=== PATIENT | female | born 1995 | race Two or more races ===

== ENCOUNTER 2016-04-20 06:56 | Emergency (ER) | payer OTHER ==
[2016-04-20 07:11] VITALS: BP 105/75; PULSE 93; TEMP 99.1; BMI 24.3
[2016-04-20] MEDS ORDERED: diphenhydrAMINE HCL 25 MG CAPSULE (FP) PO ONE ×2 (07:49→08:10)
[2016-04-20] MEDS ORDERED: ACETAMINOPHEN 325 MG TABLET (FP) PO ONE (07:49)
--- NOTE | 2016-04-20 07:49 | PDOC ---
History of Present Illness - General History Source: Patient Exam Limitations: No Limitations - History of Present Illness Initial Comments: CHIEF COMPLAINT: 20 y/o afebrile female, approximately 11 weeks , c/o nasal congestion and dry cough for the past 1 week. HISTORY OF PRESENT ILLNESS: The patient states last night and today she's had a headache from all of the coughing. She has not taken any medication for her symptoms. She denies f/c, n/v/d, changes in vision/hearing, runny nose, body aches, CP, SOB, abd pain, back pain, hematuria, dysuria, vaginal bleeding. She is taking daily vitamins and is a non smoker. Vital signs on arrival are within normal limits. REVIEW OF SYSTEMS: GENERAL/CONSTITUTIONAL: No fever/chills. No weakness. No weight change. HEAD, EYES, EARS, NOSE AND THROAT: No change in vision. No ear pain or discharge. No sore throat. +nasal congestion CARDIOVASCULAR: No chest pain or shortness of breath. RESPIRATORY: +dry cough. No wheezing, or hemoptysis. GASTROINTESTINAL: No abd pain, nausea, vomiting, diarrhea. GENITOURINARY: No dysuria, frequency, or change in urination. MUSCULOSKELETAL: No joint or muscle swelling or pain. No neck or back pain. SKIN: No rash or easy bruising. NEUROLOGIC: No headache, vertigo, loss of consciousness, or loss of sensation. PSYCHIATRIC: No depression or anxiety. ENDOCRINE: No increased thirst. No abnormal weight change. HEMATOLOGIC/LYMPHATIC: No anemia, easy bleeding, or history of blood clots. ALLERGIC/IMMUNOLOGIC: No hives or skin allergy. No latex allergy. PHYSICAL EXAM: GENERAL: The patient is awake, alert, and fully oriented, in no acute distress. She is well appearing, ambulatory, in NAD or obvious discomfort. She has an intermittent dry cough. HEAD: Normal with no signs of trauma. No pain with palpation of sinuses. ENT: Pupils equal, round and reactive to light, extraocular movements intact, sclera anicteric, conjunctiva clear. Neck supple. No tonsilar erythema, edema or exudate. No cervical lymphadenopathy. Nose is red but clear of rhinorrhea. LUNGS: Clear to auscultation bilaterally. Normal excursion. No respiratory distress or use of accessory muscles. CV: RRR, S1/S2, no MRG. Cap refill < 2 sec. ABDOMEN: Soft, non-distended, non-tender even to deep palpation, no hepatomegaly or splenomegaly, no masses. EXTREMITIES: Normal range of motion, no edema. NEUROLOGICAL: Normal speech, normal gait. CN II-XII grossly intact. PSYCH: Normal mood, normal affect. SKIN: Warm, dry, normal turgor, no rashes or lesions noted. <Amish Russoee - Last Filed: 04/20/16 07:42> <Onofre Morales - Last Filed: 04/21/16 09:39> - General Chief Complaint: Cold Symptoms Stated Complaint: COLD SYMPTOMS, HEADACHE Time Seen by Provider: 04/20/16 07:41 Past History - Past Medical History Other medical history: denies - Immunization History Immunization Up to Date: Yes - Psycho/Social/Smoking Cessation Hx Anxiety: No Suicidal Ideation: No Smoking History: Never smoked Have you smoked in the past 12 months: No Information on smoking cessation initiated: No Hx Alcohol Use: No Drug/Substance Use Hx: No Substance Use Type: None <Ange Russo - Last Filed: 04/20/16 07:42> <Onofre Morales - Last Filed: 04/21/16 09:39> - Past Medical History Allergies/Adverse Reactions: Allergies Allergy/AdvReac Type Severity Reaction Status Date / Time No Known Allergies Allergy Verified 04/20/16 07:08 *Physical Exam - Vital Signs Last Vital Signs Temp Pulse Resp BP Pulse Ox 99.1 F 93 H 20 105/75 100 04/20/16 07:09 04/20/16 07:09 04/20/16 07:09 04/20/16 07:09 04/20/16 07:09 <Amish Russoee - Last Filed: 04/20/16 07:42> - Vital Signs Last Vital Signs Temp Pulse Resp BP Pulse Ox 99.1 F 93 H 20 105/75 100 04/20/16 07:09 04/20/16 07:09 04/20/16 07:09 04/20/16 07:09 04/20/16 07:09 <Onofre Morales - Last Filed: 04/21/16 09:39> ED Treatment Course - Medications Given in the ED: ED Medications Discontinued Medications Generic Name Dose Route Start Last Admin Trade Name Freq PRN Reason Stop Dose Admin Acetaminophen 650 mg 04/20/16 07:49 04/20/16 08:16 Tylenol - PO 04/20/16 07:50 650 mg ONCE ONE Administration Diphenhydramine HCl 25 mg 04/20/16 07:49 04/20/16 08:16 Benadryl - PO 04/20/16 07:50 25 mg ONCE ONE Administration <Onofre Morales - Last Filed: 04/21/16 09:39> Medical Decision Making - Medical Decision Making A/P: 20 y/o 11 week female with nasal congestion, dry cough and headache. Plan is as follows: 1. PO tylenol 2. PO benadryl Will discharge to home. Suggested the patient take tylenol for headache and benadryl for nasal congestion. Instructed her to drink plenty of fluids, use steam heat for congestion and f/u with her PCP and POLYSOMNOGRAPHIC TECHNICIAN as soon as possible. Instructed her to return to the eR with any worsening or concerning symptoms. The patient verbalizes understanding of all instructions, has no further questions and is awaiting discharge. <Ange Russo - Last Filed: 04/20/16 07:42> - Medical Decision Making The patient was seen and evaluated in conjunction with KARON Russo under my direct supervision, ancillary studies were reviewed. I agree with the plan as outlined by KARON Russo . <Onofre Morales - Last Filed: 04/21/16 09:39> *DC/Admit/Observation/Transfer <Ange Russo - Last Filed: 04/20/16 07:42> <Onofre Morales - Last Filed: 04/21/16 09:39> Diagnosis at time of Disposition: Nasal congestion, Common cold - Discharge Dispostion Disposition: HOME Condition at time of disposition: Good - Referrals Referrals: Marisol Hewitt [Primary Care Provider] - Call tomorrow - Patient Instructions Printed Discharge Instructions: DI for Common Cold, DI for Nasal Congestion Additional Instructions: Discharge Instructions: -Take Tylenol for headache every 4 hours if needed -Take Benadryl for nasal congestion -Use steam heat to help with nasal congestion and cough -Follow up with your doctor and POLYSOMNOGRAPHIC TECHNICIAN as soon as possible -Drink plenty of fluids and rest -Return to the ER with any worsening or concerning symptoms - Post Discharge Activity Work/School Note: Back to Work
[2016-04-20] MEDS ORDERED: ACETAMINOPHEN 325 MG TABLET (FP) ONE (08:10)
== END 2016-04-20 08:31 | disposition home or self-care (01) ==
LOC: JER 06:56
DX: O99.89 Other specified diseases and conditions complicating pregnancy, childbirth and the puerperium (principal); J00 Acute nasopharyngitis [common cold]; Z3A.11 11 weeks gestation of pregnancy
CPT/HCPCS: 99283-25

== ENCOUNTER 2016-10-18 05:25 | Inpatient (IN) | payer OTHER ==
[2016-10-18] MEDS ORDERED: DEXTROSE 5%-LACTATED RINGERS 500 ML IV ONE (06:15)
[2016-10-18] MEDS ORDERED: DEXTROSE 5%-LACTATED RINGERS 500 ML IV SCH (07:15)
[2016-10-18] MEDS ORDERED: DEXTROSE 5%-LACTATED RINGERS 1,000 ML IV SCH (13:50)
[2016-10-18 13:51] VITALS: BMI 29.2
[2016-10-18] MEDS ORDERED: BUTORPHANOL TARTRATE 1 MG/ML VIAL IVPB ONE (14:53)
[2016-10-18] MEDS ORDERED: PROMETHAZINE HCL 25 MG/1 ML VIAL IVPUSH ONE (14:53)
[2016-10-18 15:10] LABS: BASOPHIL 0.2 % (0-2.0); MCH 31.1 pg (25.7-33.7); MEAN CELL VOLUME 94.3 fl (80-96); MEAN PLT VOLUME 10.3 fl (7.5-11.1); PLATELET COUNT 162 K/MM3 (134-434); RDW 14.1 % (11.6-15.6); WHITE BLOOD COUNT 13.2 K/mm3 (4.0-10.0)
--- NOTE | 2016-10-18 15:11 | HP ---
Past Medical History - Primary Care Physician PCP:: Renee Rajan - Admission Chief Complaint: 21 yrs , 37.3/7 weeks gestation onset of Lp since 11.00 AM . pt was evaluated earlier in L&D [facility] after IVhydrarion, Latent labor was diagnosed History of Present Illness: PNC at [address] [place] [address] . Wt Gain 20 Lbs work Up :O Pos, Rpr nr, Hbsag neg, Rubella immune, Hiv neg, Quantiferon neg, Gbs neg, Gc/Ct neg , !Hr Gtt 88 NT screen & Modified sequential screen neg, Declined NIPT h/o Intracardiac echogenic focus seen during early pregn, 2D echo neg . 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 Weeks Gestation by Dates: 37.3 ...EDC by Dates: 11/05/16 ...EDC by Sono: 11/05/16 Heme/Onc: Yes: Anemia Infectious Disease: No: AIDS, HIV, STD's Psych: No: Addictions, Anxiety, Bipolar, Depression Endocrine: No: Diabetes Mellitus, Hyperparathyroidism, Hyperthyroidism, Hypothyroidism - Past Surgical History Past Surgical History: Yes: None Hx Myomectomy: No Hx Transabdominal Cerclage: No - Smoking History Smoking history: Never smoked Have you smoked in the past 12 months: No - Alcohol/Substance Use Hx Alcohol Use: No History of Substance Use: reports: None Home Medications - Allergies Allergies/Adverse Reactions: Allergies Allergy/AdvReac Type Severity Reaction Status Date / Time No Known Allergies Allergy Verified 10/18/16 06:39 - Home Medications Home Medications: Ambulatory Orders Ferrous Sulfate 325 mg PO DAILY 10/18/16 Vitamins (Sjr) - 1 tab PO DAILY 10/18/16 Physical Exam - Maternity Vital Signs: Vital Signs Temperature 98.9 F 10/18/16 14:21 Pulse Rate 91 H 10/18/16 14:21 Respiratory Rate 20 10/18/16 14:21 Blood Pressure 130/68 10/18/16 14:21 O2 Sat by Pulse Oximetry (%) Selected Entries 10/18/16 13:41 Weight 117 lb Constitutional: Yes: Well Nourished, Moderate Distress, Other (pt short 4'5") Eyes: Yes: WNL HENT: Yes: WNL, Normocephalic Neck: Yes: WNL Cardiovascular: Yes: WNL, Regular Rate and Rhythm Lungs: Clear to auscultation Breast(s): Yes: WNL - Abdominal Exam/OB Fundal Height: 38 Number of Fetuses: Single Presentation: Vertex Contractions: Yes Regularity: Regular (2-4min) Intensity: Moderate Monitor Mode: External Heart Rate (range): 152 Heart Rate Location: [facility] Category: I Accelerations: Uniform - Vaginal Exam/OB Vaginal Bleediing: Bloody Show Speculum Exam: No Dilatation (cm): 3-4 Effacement (%): 80 Amniotic Membrane Status: Intact Presentation: Vertex/Position (ANT asynclitism) Station: -1 - Physical Exam Musculoskeletal: Yes: WNL Extremities: Yes: WNL. No: Calf Tenderness Edema: Yes Edema: LLE: 1+, RLE: 1+ Integumentary: Yes: WNL Deep Tendon Reflex Grade: Normal +2 ...Motor Strength: WNL Psychiatric: Yes: WNL, Alert, Oriented - Labs Lab Results: Laboratory Tests 10/18/16 10/18/16 10/18/16 14:10 14:10 14:10 WBC 13.2 H Hgb 11.4 Hct 34.4 Plt Count 162 Neutrophils % 89.0 H Lymphocytes % 7.4 L Monocytes % 3.4 L INR 0.96 PTT (Actin FS) 26.5 L Sodium 138 Potassium 3.9 Chloride 104 Carbon Dioxide 23 BUN 4 L Creatinine 0.4 L Random Glucose 121 H Calcium 8.5 Blood Type 10/18/16 14:10 WBC Hgb Hct Plt Count Neutrophils % Lymphocytes % Monocytes % INR PTT (Actin FS) Sodium Potassium Chloride Carbon Dioxide BUN Creatinine Random Glucose Calcium Blood Type O POSITIVE Problem List - Problems (1) with 37 or more completed weeks gestation Code(s): [id number] - (2) Labor established Code(s): ENJ6430 - Assessment/Plan 21 yrs 37.3/7 weeks , in labor . Gbs neg Plan trial of vaginal delivery may ambulate stadol + phergan ffor ;abor analgesia
[2016-10-18] MEDS ORDERED: BUTORPHANOL TARTRATE 1 MG/ML VIAL IVPUSH ONE (15:19)
[2016-10-18 15:42] LABS: ANION GAP 11 (8-16); CALCIUM 8.5 mg/dL (8.5-10.1); CO2 23 mmol/L (21-32); CREATININE 0.4 mg/dL (0.55-1.02); GLUCOSE,RANDOM 121 mg/dL (74-106)
[2016-10-18 15:48] LABS: INR 0.96 (0.82-1.09); PROTHROMBIN TIME (PATIENT) 10.5 SEC (9.98-11.88)
[2016-10-18 15:50] LABS: ACTIVATED PTT 26.5 SECONDS (26.9-34.4)
--- NOTE | 2016-10-18 19:21 | PN ---
Progress Note, Labor Vaginal Exam #1 Labor Exam Date: 10/18/16 Labor Exam Time: 19:05 Heart Rate (range): 150 Dilatation: 7-8 Effacement (%): 100 Amniotic Membrane Status: Ruptured (AROM clear) Presentation: Vertex/Position Station: -1 (-1/0) Remarks: fhr cat-1 uc 2-3 min Selected Entries 10/18/16 18:00 Temperature 98.2 F Pulse Rate 88 Blood Pressure 126/69 Vaginal Exam #2 Labor Exam Date: 10/18/16 Labor Exam Time: 20:15 Heart Rate (range): 150 Dilatation: 8-9 Effacement (%): 100 Amniotic Membrane Status: Ruptured Presentation: Vertex/Position Station: 0 (0/+1) Remarks: uc q2 min fhr cat-1 Selected Entries 10/18/16 10/18/16 19:00 20:00 Temperature 99.0 F Pulse Rate 89 Blood Pressure 123/62 Vaginal Exam #3 Labor Exam Date: 10/18/16 Labor Exam Time: 20:45 Heart Rate (range): 150 Dilatation: 9 Effacement (%): 100 Amniotic Membrane Status: Ruptured Presentation: Vertex/Position Station: +1 (+1/+2) Remarks: fhr cat1, , sometimes cat2 uc q2 min pt encouraged not to push Vaginal Exam #4 Labor Exam Date: 10/18/16 Labor Exam Time: 21:20 Heart Rate (range): 120-150 Dilatation: 10 Effacement (%): 100 Amniotic Membrane Status: Ruptured Presentation: Vertex/Position Station: +2 (+2/+3) Remarks: fhr cat 2 uc q 1-2 min pt pushing
[2016-10-18] MEDS ORDERED: oxyCODONE HCL 5 MG TABLET PO PRN (22:05)
[2016-10-18] MEDS: ACETAMINOPHEN 325 MG TABLET (FP) PO PRN (22:05)
[2016-10-18] MEDS: IBUPROFEN 600 MG TABLET (FP) PO PRN (22:05)
[2016-10-18] MEDS ORDERED: D5W-LR W/ 20 UNITS OXYTOCIN 1,000 ML IV SCH (22:05)
[2016-10-18 22:42] LABS: VENOUS BLOOD GAS HCO3 18.2 meq/L (19-25)
[2016-10-18 22:44] LABS: ARTERIAL BLD GAS O2 SATURATION 20.9 % (90-98.9); ARTERIAL BLOOD GAS BASE EXCESS -12.8 meq/l (-2-2); ARTERIAL BLOOD GAS HCO3 18.8 meq/L (22-26); ARTERIAL BLOOD GAS PO2 19.5 mmHg (80-100)
[2016-10-18 22:45] LABS: PT. ON O2? no; VENOUS PH 7.14 (7.32-7.42)
[2016-10-18 22:46] LABS: ARTERIAL BLOOD GAS pH 7.06 (7.35-7.45); LPM/O2% 21%; TYPE OF O2 room air
[2016-10-18] MEDS ORDERED: BISACODYL 10 MG SUPP.RECT RC PRN (22:59)
[2016-10-18] MEDS ORDERED: METHYLERGONOVINE MALEATE 0.2 MG/1 ML AMP IM PRN (22:59)
[2016-10-18] MEDS ORDERED: WITCH HAZEL 50% (TUCKS) 40 PAD/JAR PAD TP PRN (22:59)
[2016-10-18] MEDS ORDERED: BENZOCAINE 28 GM HEMORRHOIDAL OINTMENT TP PRN (22:59)
[2016-10-18] MEDS ORDERED: BENZOCAINE 20% 57 GM BOTTLE TP PRN (22:59)
--- NOTE | 2016-10-18 23:33 | PN ---
Delivery - Delivery Vaginal Delivery: No Problems, Spontaneous Type of Anesthesia: Local Episiotomy/Laceration: Midline (episiotomy sutured in layers with chr catgut #2/ O . 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 pt did not take any pain meds
[2016-10-19] MEDS: ACETAMINOPHEN 325 MG TABLET (FP) PO PRN ×2 (03:22→17:54)
[2016-10-19] MEDS: IBUPROFEN 600 MG TABLET (FP) PO PRN (03:24)
[2016-10-19] MEDS: DOCUSATE SODIUM 100 MG CAPSULE (FP) PO SCH ×2 (06:41→14:34)
[2016-10-19 07:23] LABS: BASOPHIL 0.2 % (0-2.0); MCH 31.8 pg (25.7-33.7); MCHC 33.9 g/dl (32.0-36.0); MEAN CELL VOLUME 93.9 fl (80-96); MEAN PLT VOLUME 9.5 fl (7.5-11.1); NEUTROPHILS 81.3 % (42.8-82.8); PLATELET COUNT 123 K/MM3 (134-434); RDW 13.7 % (11.6-15.6); WHITE BLOOD COUNT 13.8 K/mm3 (4.0-10.0)
[2016-10-19] MEDS: FERROUS SO4 325 MG TABLET (FP) PO SCH ×2 (08:46→17:53)
--- NOTE | 2016-10-19 09:21 | PN ---
Post Progress Note - Subjective Subjective: pt voided today AM after delivery no c/o cramps Post Day: 1 Type of Delivery: Vital Signs: Vital Signs Temperature 98.2 F 10/19/16 06:00 Pulse Rate 65 10/19/16 06:00 Respiratory Rate 18 10/19/16 06:00 Blood Pressure 102/66 10/19/16 06:00 O2 Sat by Pulse Oximetry (%) 100 10/18/16 22:30 Breast Exam: Yes: Soft. No: Engorged Uterus: Yes: Fundus Firm, Fundus below umbilicus, Non-tender Lochia: Yes: Rubra Lochia, amount: Moderate Extremities: Yes: Calves non-tender Perineum: Yes: Episiotomy (healing . c/o perineal soreness) Activity: Ambulating - Labs Labs: CBC WBC 13.8 K/mm3 (4.0-10.0) H 10/19/16 06:40 RBC 3.09 M/mm3 (3.60-5.2) L 10/19/16 06:40 Hgb 9.8 GM/dL (10.7-15.3) L D 10/19/16 06:40 Hct 29.0 % (32.4-45.2) L D 10/19/16 06:40 MCV 93.9 fl (80-96) 10/19/16 06:40 MCH 31.8 pg (25.7-33.7) 10/19/16 06:40 MCHC 33.9 g/dl (32.0-36.0) 10/19/16 06:40 RDW 13.7 % (11.6-15.6) 10/19/16 06:40 Plt Count 123 K/MM3 (134-434) L D 10/19/16 06:40 MPV 9.5 fl (7.5-11.1) 10/19/16 06:40 Neutrophils % 81.3 % (42.8-82.8) 10/19/16 06:40 Lymphocytes % 12.7 % (8-40) D 10/19/16 06:40 Monocytes % 5.8 % (3.8-10.2) 10/19/16 06:40 Eosinophils % 0.0 % (0-4.5) 10/19/16 06:40 Basophils % 0.2 % (0-2.0) 10/19/16 06:40 Problem List - Problems (1) with 37 or more completed weeks gestation Code(s): [id number] - (2) Labor established Code(s): [id number] - Assessment/Plan anemia plan discharge tomorrow Note transferred ti NICU due to Lo O2 sat, on CPAP & antibiotics
[2016-10-19] MEDS: PRENATAL VITAMINS W/ FOLIC ACID TABLET (FP) PO SCH (09:40)
[2016-10-19] MEDS ORDERED: DIPHTH,PERTUSS(ACELL),TET 0.5 ML DISP.SYRIN IM ONE (14:00)
[2016-10-20] MEDS: DOCUSATE SODIUM 100 MG CAPSULE (FP) PO SCH ×2 (00:34→06:37)
[2016-10-20] MEDS: ACETAMINOPHEN 325 MG TABLET (FP) PO PRN ×2 (00:34→10:28)
[2016-10-20] MEDS: FERROUS SO4 325 MG TABLET (FP) PO SCH (08:08)
--- NOTE | 2016-10-20 09:06 | DS ---
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: Vital Signs Temperature 98.7 F 10/19/16 22:00 Pulse Rate 87 10/19/16 22:00 Respiratory Rate 18 10/19/16 22:00 Blood Pressure 102/50 10/19/16 22:00 O2 Sat by Pulse Oximetry (%) 100 10/18/16 22:30 Constitutional: Yes: Well Nourished Eyes: Yes: Conjunctiva Clear HENT: Yes: Atraumatic Neck: Yes: Supple, Trachea Midline Cardiovascular: Yes: Regular Rate and Rhythm Respiratory: Yes: Regular, CTA Bilaterally Gastrointestinal: Yes: Normal Bowel Sounds Vaginal Exam: Yes: Normal Cervix: Yes: Normal Uterus: Yes: Firm ....Post : Yes: Uterus firm, Moderate lochia serosa Breast(s): Yes: WNL Musculoskeletal: Yes: WNL Integumentary: Yes: WNL Neurological: Yes: Alert, Oriented Psychiatric: Yes: Alert, Oriented Labs: CBC, BMP 10/19/16 06:40 10/18/16 14:10 Delivery - Delivery Vaginal Delivery: No Problems, Spontaneous Type of Anesthesia: Local Episiotomy/Laceration: Midline (episiotomy sutured in layers with chr catgut #2/ O . 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 Gender: Male Weight: 6 lb 13 oz Position: Left, OA Total Hours ROM (Hrs/Mins): 2hrs/52mins - 1 Minute Total Score: 9 5 Minutes Total Score: 9 - [place] Feeding Plan Initial Plan: Elected not to breastfeed exclusively throughout hospitalization Discharge Summary Reason For Visit: LABOR ADMIT Current Active Problems Labor established (Acute) Normal spontaneous vaginal delivery (Acute) with 37 or more completed weeks gestation (Acute) Procedures: Principal: Normal spontaneous vaginal delivery Hospital Course: Routine care Condition: Stable - Instructions Diet, Activity, Other Instructions: Post Instructions DIET: Continue good diet high in protein, calcium, and iron rich foods. Drink at least eight (8) glasses of water daily in addition to other fluids. ct Regular diet MEDICATIONS: Continue vitamins and iron as previously directed. Motrin and Tylenol may be taken for minor discomfort. ACTIVITY: Mild to moderate exercise may be started in two (2) weeks. Take frequent rest periods. Resume normal activity after six (6) week check up. WOUND CARE OF OPERATIVE SITE: Continue use of perineal bottle until vaginal discharge stops. Keep area clean. Shower daily. Keep abdominal wound dry. Report any drainage or redness to physician. Tub baths, tampons and douches are not permitted for 6 weeks. SITZ BATH tid Avoid constipation ct Breast feeding & or Bottle feeding BREAST CARE: (For those that are not breast feeding): If engorgement occurs: Wear tight fitting bra. Take Tylenol or Motrin for pain. Apply cold packs (ice in bags to each breast ) FAMILY PLANNING: There are many control alternatives to pursue and they should be discussed at your first office visit. You may resume sexual activity after your six (6) week check up. (Remember, breast feeding is not a contraceptive) NEXT PHYSICIAN APPOINTMENT: Be certain to call for a six (6) week appointment, unless otherwise directed. Call Clinic or got to Emergency Dept if you have any of the following: Heavy vaginal bleeding Painful urination Leg pain Unusual odor noted to vaginal bleeding High fever Red streaking noted on breast Referrals: Renee Rajan MD [Staff Physician] - Disposition: HOME - Home Medications Comprehensive Discharge Medication List: Ambulatory Orders Acetaminophen [Tylenol .Regular Strength -] 650 mg PO Q3H PRN #0 tablet Benzocaine [Americaine 20% [place] -] 1 spray TP PRN PRN #0 bottle 10/18/16 Docusate Sodium [Colace -] 100 mg PO TID #60 tab 10/18/16 Ferrous Sulfate 325 mg PO DAILY 10/18/16 Ferrous Sulfate [Feosol] 325 mg PO DAILY #60 tab 10/18/16 Ibuprofen [Motrin -] 200 mg PO Q4H PRN #0 tablet 10/18/16 Vitamins (Sjr) - 1 tab PO DAILY 10/18/16 Vitamins (Sjr) - 1 tab PO DAILY tablet 10/18/16 Shane Torrez 50% (Sarah) [Tucks Pads -] 1 pad TP PRN PRN #0 pad 10/18/16
[2016-10-20] MEDS: PRENATAL VITAMINS W/ FOLIC ACID TABLET (FP) PO SCH (10:25)
[2016-10-20] MEDS: IBUPROFEN 600 MG TABLET (FP) PO PRN (10:27)
[2016-10-20 12:59] VITALS: BP 103/44; PULSE 88; TEMP 98.4
== END 2016-10-20 11:00 | disposition home or self-care (01) | DRG 560 ==
LOC: JDEL 05:25 → JLDR 13:17 → J3W 10-19 00:10
PROVIDERS: ADMIT Obstetrics & Gynecology; ATTEND Obstetrics & Gynecology
PROC: 10E0XZZ Delivery of Products of Conception, External Approach (ICD-10-PCS; principal; 2016-10-18)
PROC: 0W8NXZZ Division of Female Perineum, External Approach (ICD-10-PCS; 2016-10-18)
DX: O80 Encounter for full-term uncomplicated delivery (principal); Z3A.37 37 weeks gestation of pregnancy; Z37.0 Single live birth
CPT/HCPCS: 36415; 36600; 59025; 59409; 80048; 82803; 85025; 85610; 85730; 86593; 86850; 86900; 86901; 90715

== ENCOUNTER 2021-12-25 20:23 | Emergency (ER) | payer OTHER ==
[2021-12-25 20:42] VITALS: BP 116/64; PULSE 84; RESP 18; TEMP 98.4; BMI 25.7
[2021-12-25] MEDS ORDERED: ACETAMINOPHEN 325 MG TABLET (FP) PO ONE (23:04)
[2021-12-25] MEDS ORDERED: ACETAMINOPHEN 325 MG TABLET (FP) ONE (23:06)
[2021-12-25 23:53] LABS: BASO % 0.8 % (0-2.0); EOS % 0.4 % (0-4.5); HEMATOCRIT 39.1 % (32.4-45.2); HEMOGLOBIN 13.9 GM/dL (10.7-15.3); LYMPH % 28.5 % (8-40); MCHC 35.5 g/dl (32.0-36.0); MEAN CELL VOLUME 95.8 fl (80-96); MEAN PLT VOLUME 8.3 fl (7.5-11.1); MONO % 5.1 % (3.8-10.2); NEUT % 65.2 % (42.8-82.8); PLATELET COUNT 247 10^3/uL (134-434); RBC 4.08 M/mm3 (3.60-5.2); WHITE BLOOD COUNT 8.9 K/mm3 (4.0-10.0)
[2021-12-26 00:05] LABS: CALCIUM 9.2 mg/dL (8.5-10.1)
[2021-12-26 00:06] LABS: ALBUMIN 4.2 g/dl (3.4-5.0); BLOOD UREA NITROGEN 6.3 mg/dL (7-18)
[2021-12-26 00:08] LABS: CREATININE 0.5 mg/dL (0.55-1.3)
[2021-12-26 00:11] LABS: BILIRUBIN,TOTAL 0.5 mg/dL (0.2-1); TOT PROT 7.6 g/dl (6.4-8.2)
== END 2021-12-26 01:02 | disposition home or self-care (01) ==
LOC: JER 20:23
DX: R07.89 Other chest pain (principal)
CPT/HCPCS: 0241U-QW; 36415; 71046-TC-FY; 80053; 84703; 85025; 85379; 93005; 93010; 99285-25